=== PATIENT | male | born 1935 | race Caucasian/White ===

== ENCOUNTER 2019-01-27 21:41 | Inpatient (IN) | payer OTHER, MEDICAID ==
[~2019-01-27] VITALS: Ht 172.7 cm; Wt 102.1 kg
[2019-01-27 21:53] VITALS: Ht 172.7 cm; Wt 102.1 kg
[2019-01-27 22:25] LABS: BASOPHIL % 0.6 % (0-2); PLATELET COUNT 208 x10^3mcL (130-400); RED CELL DISTRIBUTION WIDTH 14.1 % (11.5-14.5)
[2019-01-27 22:36] LABS: CALCIUM 8.2 mg/dL (8.5-10.1); CARBON DIOXIDE 29.9 mmol/L (21-32); CHLORIDE SERUM 105 mmol/L (98-107); CREATININE SERUM 1.1 mg/dL (0.7-1.3); GLUCOSE SERUM 110 mg/dL (74-106); POTASSIUM SERUM 3.9 mmol/L (3.5-5.1); SODIUM SERUM 143 mmol/L (136-145)
[2019-01-27 22:38] LABS: ALKALINE PHOSPHATASE 127 U/L (46-116); ALT/SGPT 7 U/L (16-63); AST/SGOT 4 U/L (15-37); BILIRUBIN TOTAL 0.36 mg/dL (0.20-1.00); TOTAL PROTEIN, SERUM 6.4 g/dL (6.4-8.2)
[2019-01-27 22:41] LABS: ALBUMIN 3.3 g/dL (3.4-5.0)
[2019-01-28] MEDS ORDERED: MYSOLINE50 M1 PO (00:40)
[2019-01-28] MEDS ORDERED: COLACE100 MG PO (00:41)
[2019-01-28] MEDS ORDERED: DEPAKOTE500 MG PO (00:41)
[2019-01-28] MEDS ORDERED: METOPROLOL TART25 M1 PO (00:41)
[2019-01-28] MEDS ORDERED: SEROQUEL25 MG PO (00:42)
[2019-01-28] MEDS ORDERED: ZOLOFT100 MG PO (00:42)
[2019-01-28] MEDS ORDERED: PANTOPRAZOLE SO40 M1 PO (00:43)
[2019-01-28] MEDS ORDERED: WEL75 PO (00:43)
[2019-01-28] MEDS ORDERED: CLOPIDOGREL75 M1 PO (00:44)
[2019-01-28] MEDS ORDERED: LIPI20 PO (00:44)
[2019-01-28] MEDS ORDERED: SINEMET 25-1001 TAB PO (00:44)
[2019-01-28 01:17] VITALS: BP 123/72
[2019-01-28 05:29] VITALS: BP 122/76
[2019-01-28 06:14] LABS: BASOPHIL % 0.3 % (0-2); PLATELET COUNT 190 x10^3mcL (130-400); RED CELL DISTRIBUTION WIDTH 14.5 % (11.5-14.5)
[2019-01-28 06:22] LABS: CALCIUM 8.7 mg/dL (8.5-10.1); CARBON DIOXIDE 29.7 mmol/L (21-32); CHLORIDE SERUM 104 mmol/L (98-107); CREATININE SERUM 1.2 mg/dL (0.7-1.3); GLUCOSE SERUM 89 mg/dL (74-106); POTASSIUM SERUM 5.4 mmol/L (3.5-5.1); SODIUM SERUM 140 mmol/L (136-145)
[2019-01-28 09:56] VITALS: BP 114/71
[2019-01-28 13:19] VITALS: BP 123/74
[2019-01-28 13:36] VITALS: BP 123/74
[2019-01-28 17:31] VITALS: BP 123/71
== END 2019-01-28 19:45 | disposition home or self-care (01) | DRG 316 ==
LOC: ED 21:41 → DU 01-28 00:24 → EDBEDREQ 01-28 00:27 → DU 01-28 01:17
PROVIDERS: Emergency Medicine; ADMIT Internal Medicine Pulmonary Disease
DX: I95.9 Hypotension, unspecified (principal); R55 Syncope and collapse; T44.7X5A Adverse effect of beta-adrenoreceptor antagonists, initial encounter; I11.9 Hypertensive heart disease without heart failure; I25.10 Atherosclerotic heart disease of native coronary artery without angina pectoris; G20 Parkinson's disease; E78.00 Pure hypercholesterolemia, unspecified; I25.2 Old myocardial infarction; Z95.0 Presence of cardiac pacemaker; Z68.33 Body mass index [BMI] 33.0-33.9, adult; Y92.009 Unspecified place in unspecified non-institutional (private) residence as the place of occurrence of the external cause
CPT/HCPCS: 85378; 97110-GP; J1650; J7030; Q0092